=== PATIENT | female | born 2000 | race African-American/Black ===

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

== ENCOUNTER 2020-04-20 13:55 | Emergency (ER) | payer MEDICAID ==
[~2020-04-20] VITALS: Ht 170.2 cm; Wt 113.0 kg
[2020-04-20] MEDS ORDERED: TETANUS, DIPHTHERIA, PERTUSSIS VAC/PF 0.5ML (>7YR OLD) IM ONE (15:00)
[2020-04-20] MEDS ORDERED: KETOROLAC 30MG/ML VIAL IM ONE (15:00)
[2020-04-20 15:30] VITALS: BP 127/78
== END 2020-04-20 15:40 | disposition home or self-care (01) ==
LOC: ER 13:55
DX: S60.212A Contusion of left wrist, initial encounter (principal); S80.12XA Contusion of left lower leg, initial encounter; S00.81XA Abrasion of other part of head, initial encounter; V43.52XA Car driver injured in collision with other type car in traffic accident, initial encounter; Y93.89 Activity, other specified; Y92.89 Other specified places as the place of occurrence of the external cause; Y99.8 Other external cause status
CPT/HCPCS: 81025; 90471; 90715; 96372; 99284; J1885